=== PATIENT | female | born 1950 | race Caucasian/White ===

== ENCOUNTER 2020-03-05 10:19 | Day surgery (SDC) | payer MEDICARE, MEDICAID ==
[~2020-03-05] VITALS: Ht 170.2 cm; Wt 90.0 kg
--- NOTE | ~2020-03-05 | OP ---
PATIENT NAME: CLARE SUMNER MEDICAL RECORD: [id number] :52 LOCATION:[facility] ADMISSION DATE: SURGEON: NATALIE GLEZ DO DATE OF OPERATION: 03/05/2020 PROCEDURE: Colonoscopy with polypectomy. INDICATIONS FOR PROCEDURE: Irregular bowel habits, unintentional weight loss, lower abdominal pain, nausea. SCOPE: Olympus video pediatric colonoscope. MEDICATIONS: Propofol 680 mg IV per anesthesia. WITHDRAWAL TIME: 39 minutes. ESTIMATED BLOOD LOSS: Minimal. COMPLICATIONS: None. FINDINGS: Informed consent was given. The patient was made comfortable with the above medication. After reaching an adequate level of sedation by slow IV push, the patient was placed on her left side. A digital rectal examination was performed and was normal. The endoscope was then advanced under direct visualization through the rectum to the cecum, confirmed by the presence of the appendiceal orifice and ileocecal valve. The endoscope was slowly withdrawn and mucosa was carefully examined. The prep quality was good. The patient had multiple hyperplastic polyps located in the rectum and rectosigmoid junction that were not removed on today's examined. There were multiple polyps removed, however. Two were located in the cecum. One was a benign appearing sessile polyp, which measured approximately 3 mm in diameter. It was removed using hot forceps. There was also a large flat polyp, which measured approximately 1.3 cm in size. It was removed using endoscopic mucosal resection technique in piecemeal fashion. The polyp was lifted using Eleview solution prior to hot snare polypectomy. Due to the location of the polyp, a single endoclip was used for tissue positioning and reinforcing. There were 3 polyps removed from the descending colon. They were all benign appearing and sessile and ranged in size from 5-6 mm in diameter. They were removed using a hot snare. There was evidence of mild diverticulosis involving the descending and sigmoid colon. Retroflexion was performed in the rectum with visualization of grade I internal hemorrhoids without bleeding. The endoscope was withdrawn from the patient. The patient tolerated the procedure well and there were no immediate complications. IMPRESSION: 1. Multiple polyps as described above, removed using a combination of endoscopic mucosal resection technique, hot snare, and hot forceps. 2. Mild diverticulosis of the descending and sigmoid colon. 3. Grade I internal hemorrhoids without bleeding. PLAN AND RECOMMENDATIONS: 1. Discharge home when recovery parameters are met. 2. Follow up biopsy specimen results. 3. High fiber diet. 4. Supplement diet with Metamucil 1 tablespoon daily. OPERATIVE REPORT [id number] CLARE SUMNER 5. Dicyclomine 20 mg 3 times daily as needed for loose stools or abdominal pain and cramping. 6. Recall colonoscopy will be dependent on results of pathology of polyps removed today. I anticipate recall in 6-12 months. TRANSINT:[id number] Voice Confirmation ID: [id number] DOCUMENT ID: [id number] NATALIE GLEZ DO CC: [id number] DICTATION DATE: 03/05/20 1301 VISUAL MERCHANDISE MANAGER: 03/05/20 1408 [facility] [address] [id number]
[2020-03-05] MEDS ORDERED: LIPITOR80 MG PO (10:56)
[2020-03-05] MEDS ORDERED: VALIUM5 MG PO (10:57)
[2020-03-05] MEDS ORDERED: ZANAFLEX4 MG PO (10:57)
[2020-03-05] MEDS ORDERED: NEURONTIN800 MG PO (10:57)
[2020-03-05] MEDS ORDERED: CYMBALTA60 MG PO (10:58)
[2020-03-05] MEDS ORDERED: OXYCONTIN10 MG PO (10:58)
[2020-03-05] MEDS ORDERED: PHENERGAN25 M1 PO (10:59)
[2020-03-05] MEDS ORDERED: BENTYL 20 MG TA20 MG PO (11:00)
[2020-03-05 11:02] VITALS: BP 144/73; Ht 170.2 cm; Wt 90.0 kg
[2020-03-05 11:07] LABS: HEMATOCRIT 52.4 % (36.0-48.0); HEMOGLOBIN 16.9 g/dL (12-16); MCH 30.9 pg (26.0-34.0); MCHC 32.3 g/dL (31.0-37.0); MCV 95.8 fL (80.0-100.0); MEAN PLATELET VOLUME 9.9 fL (7.4-10.4); RBC 5.47 10x6/uL (4.00-5.40); RDW 13.7 % (11.5-14.5); WBC 8.1 10x3/uL (4.8-10.8)
--- NOTE | 2020-03-05 13:42 | NUR ---
1330-RECD TO ROOM FROM GI LAB. DR GLEZ INTO REPORT FINDINGS. 1345-FULL LIQUIDS SERVED.
--- NOTE | 2020-03-05 15:20 | NUR ---
1400-IV D/C AND DISCHARGE INSTRUCTIONS REVIEWED. 1410-STATES IS HERE. ESCORTED VIA WHEELCHAIR. 1515- JUST NOW ARRIVED TO SPEECH PATHOLOGY ASSISTANT PATIENT.
== END 2020-03-05 14:10 | disposition home or self-care (01) ==
LOC: D.OPS 10:19
PROVIDERS: Anesthesiology; ATTEND Internal Medicine Gastroenterology
DX: R19.4 Change in bowel habit (principal); R63.4 Abnormal weight loss; R10.30 Lower abdominal pain, unspecified; R11.0 Nausea; K63.5 Polyp of colon; K64.0 First degree hemorrhoids; K57.30 Diverticulosis of large intestine without perforation or abscess without bleeding; E07.9 Disorder of thyroid, unspecified; K21.9 Gastro-esophageal reflux disease without esophagitis